=== PATIENT | male | born 1960 | race Caucasian/White ===

== ENCOUNTER 2017-02-17 21:26 | Emergency (ER) | payer OTHER ==
[2017-02-17 21:52] LABS: Hematocrit 46 % (42-52); Hemoglobin 15.6 g/dl (14.0-18.0); Mean Corpuscular HGB Conc 34 g/dl (31-36); Mean Corpuscular Hemoglobin 32 pg (27-31); Mean Corpuscular Volume 95 fL (80-94); Mean Platelet Volume 9 um3 (7.4-10.4); Red Blood Count 4.85 10^6/ul (4.0-5.4); Red Cell Distribution Width 13 % (10.5-15); White Blood Count 6.6 10^3/ul (3.5-10.8)
[2017-02-17 22:09] LABS: Albumin 4.3 g/dL (3.2-5.2); Calcium 9.4 mg/dL (8.6-10.3); EGFR African American 84.3 (>60); EGFR Non-African American 65.5 (>60); Globulin 2.6 g/dL (2-4); Magnesium 2.1 mg/dL (1.9-2.7); Total Bilirubin 0.4 mg/dL (0.2-1.0); Total Protein 6.9 g/dL (6.4-8.9)
--- NOTE | 2017-02-17 23:31 | ED ---
Mirian Andino Thomas, scribed for Bandar Velazquez MD on 02/17/17 at 2148 . Dizziness - HPI Summary HPI Summary: The pt is a 56 y/o M with a PMHx of Bigeminy presenting to the ED c/o an episode of tachycardia and dizziness that lasted 20 minutes. During the episode , he additionally c/o lightheadedness. His measured his pulse at 140-150, and this lasted about 20 minutes.The episode began suddenly when he was sitting in his chair. He denies recent excessive caffeine intake or exertion earlier today. He denies any other abnormal symptoms earlier today. When he was a passenger in the car to [facility] [place] ED, his tachycardia came down slowly. The pt states that 2 or 3 times a day he has "a flutter and then palpitations that are resolved in 2-3 seconds", but he presented to the ED because this episode lasted 20 minutes. 10 years ago, the pt was evaluated under a Holter monitor and a stress test and was diagnosed with Bigeminy. Since then, he has had no major issues similar to this episode. - History Of Current Complaint Chief Complaint: EDDizziness Stated Complaint: POSS TACHYCARDIA FOR 20 MINUTES Time Seen by Provider: 02/17/17 21:34 Hx Obtained From: Patient Onset/Duration: Resolved Character: Lightheaded, Dizzy Associated Signs And Symptoms: Positive: Palpitations - consistent with past episodes as Bigeminy, lasted 20 minutes (previous episodes only 2-3 seconds), Other: - POS: tachycarida (140-150), lightheadedness, dizziness - Allergies/Home Medications Allergies/Adverse Reactions: Allergies Allergy/AdvReac Type Severity Reaction Status Date / Time No Known Allergies Allergy Verified 02/17/17 21:29 PMH/Surg Hx/FS Hx/Imm Hx Previously Healthy: No Cardiovascular History: Reports: Other Cardiovascular Problems/Disorders - POS: Bigeminy Opthamlomology History: Denies: Hx Legally Blind Infectious Disease History: No Infectious Disease History: Denies: Traveled Outside the [place] in Last 30 Days - Family History Known Family History: Positive: Other - NEG: bleeding disorder, per EMR Negative: Diabetes - per EMR - Social History Lives: With Family - per EMR Alcohol Use: Occasionally - per EMR Hx Tobacco Use: No - per EMR Review of Systems Constitutional: Negative Negative: Fever Eyes: Negative ENT: Negative Positive: Other - POS: tachycardia (140-150) for 20 minutes, bigeminy episode ( 20 minutes) Respiratory: Negative Gastrointestinal: Negative Genitourinary: Negative Musculoskeletal: Negative Skin: Negative Neurological: Other - POS: lightheadedness, dizziness Psychological: Normal All Other Systems Reviewed And Are Negative: Yes Physical Exam Triage Information Reviewed: Yes Vital Signs On Initial Exam: Initial Vitals Temp Pulse Resp BP Pulse Ox 97 F 95 16 113/82 96 02/17/17 21:30 02/17/17 21:30 02/17/17 21:30 02/17/17 21:30 02/17/17 21:30 Vital Signs Reviewed: Yes Appearance: Positive: Well-Appearing, No Pain Distress Skin: Positive: Warm Head/Face: Positive: Normal Head/Face Inspection Eyes: Positive: JED ENT: Positive: Hearing grossly normal Neck: Positive: Supple Respiratory/Lung Sounds: Positive: Clear to Auscultation, Breath Sounds Present Cardiovascular: Positive: RRR Abdomen Description: Positive: Nontender, Soft Bowel Sounds: Positive: Present Musculoskeletal: Positive: Strength/ROM Intact Neurological: Positive: Alert, Oriented to Person Place, Time Psychiatric: Positive: Affect/Mood Appropriate Diagnostics - Vital Signs Vital Signs Temp Pulse Resp BP Pulse Ox 02/17/17 21:32 97.3 F 95 16 113/82 96 02/17/17 21:30 97 F 95 16 113/82 96 - Laboratory Lab Results: Lab Results 02/17/17 02/17/17 Range/Units 21:43 21:43 WBC 6.6 (3.5-10.8) 10^3/ul RBC 4.85 (4.0-5.4) 10^6/ul Hgb 15.6 (14.0-18.0) g/dl Hct 46 (42-52) % MCV 95 H (80-94) fL MCH 32 H (27-31) pg MCHC 34 (31-36) g/dl RDW 13 (10.5-15) % Plt Count 166 (150-450) 10^3/ul MPV 9 (7.4-10.4) um3 Neut % (Auto) 43.1 (38-83) % Lymph % (Auto) 45.0 (25-47) % [place] % (Auto) 7.0 (1-9) % Eos % (Auto) 3.9 (0-6) % Baso % (Auto) 1.0 (0-2) % Absolute Neuts (auto) 2.9 (1.5-7.7) 10^3/ul Absolute Lymphs (auto) 3.0 (1.0-4.8) 10^3/ul Absolute Monos (auto) 0.5 (0-0.8) 10^3/ul Absolute Eos (auto) 0.3 (0-0.6) 10^3/ul Absolute Basos (auto) 0.1 (0-0.2) 10^3/ul Absolute Nucleated RBC 0.01 10^3/ul Nucleated RBC % 0.1 Sodium 137 (133-145) mmol/L Potassium 4.0 (3.5-5.0) mmol/L Chloride 105 (101-111) mmol/L Carbon Dioxide 26 (22-32) mmol/L Anion Gap 6 (2-11) mmol/L BUN 23 (6-24) mg/dL Creatinine 1.15 (0.67-1.17) mg/dL Est GFR ( Amer) 84.3 (>60) Est GFR (Non-Af Amer) 65.5 (>60) BUN/Creatinine Ratio 20.0 (8-20) Glucose 101 H (70-100) mg/dL Calcium 9.4 (8.6-10.3) mg/dL Magnesium 2.1 (1.9-2.7) mg/dL Total Bilirubin 0.40 (0.2-1.0) mg/dL AST 17 (13-39) U/L ALT 15 (7-52) U/L Alkaline Phosphatase 49 (34-104) U/L Troponin I 0.00 (<0.04) ng/mL Total Protein 6.9 (6.4-8.9) g/dL Albumin 4.3 (3.2-5.2) g/dL Globulin 2.6 (2-4) g/dL Albumin/Globulin Ratio 1.7 (1-3) Result Diagrams: 02/17/17 21:43 02/17/17 21:43 Lab Statement: Any lab studies that have been ordered have been reviewed, and results considered in the medical decision making process. - EKG 21:44 Cardiac Rate: NL - 95 BPM EKG Interpretation: Sinus rhythm. Normal. Re-Evaluation - Re-Evaluation First Eval Re-Evaluation Time: 23:33 Change: Improved - Feeling better no ectopy noted, will d/c f/u cardiology Dizzy Course/Dx - Diagnoses Provider Diagnoses: Palpitations Discharge - Discharge Plan Condition: Stable Disposition: HOME Patient Education Materials: Palpitations (ED) Referrals: Randall Jackson MD [Primary Care Provider] - Additional Instructions: Follow up with your taxation agent. The documentation as recorded by the Mirian gatica Thomas accurately reflects the service I personally performed and the decisions made by , Bandar Velazquez MD.
[2017-02-17 23:51] VITALS: BP 102/65
== END 2017-02-17 23:50 | disposition home or self-care (01) ==
LOC: ED 21:26
DX: R00.2 Palpitations (principal); R42 Dizziness and giddiness
CPT/HCPCS: 36415; 80053; 83735; 84484; 85025; 93005; 99283

== ENCOUNTER 2019-05-08 22:27 | Emergency (ER) | payer OTHER ==
[2019-05-08] MEDS ORDERED: Lidocaine 1% MPF ** 5 ML VIAL ONE (23:00)
--- NOTE | 2019-05-08 23:21 | ED ---
Laceration/Wound HPI - HPI Summary HPI Summary: 58 year old male presents with left index finger laceration today. He states he cut his finger on a from cutting. He denies any foreign body. No numbness or tingling. Has full range of motion. Is not actively bleeding. Has a medical conditions. Unsure when last tetanus was. - History of Current Complaint Stated Complaint: LT POINTER FINGER LAC PER PT Time Seen by Provider: 05/08/19 22:39 Pain Intensity: 6 - Allergy/Home Medications Allergies/Adverse Reactions: Allergies Allergy/AdvReac Type Severity Reaction Status Date / Time No Known Allergies Allergy Verified 05/08/19 22:32 PMH/Surg Hx/FS Hx/Imm Hx Endocrine/Hematology History: Denies: Hx Diabetes Cardiovascular History: Reports: Other Cardiovascular Problems/Disorders - POS: Bigeminy Denies: Hx Hypertension, Hx Pacemaker/ICD History: Denies: Hx Renal Disease Sensory History: Denies: Hx Legally Blind, Hx Hearing Aid Opthamlomology History: Denies: Hx Legally Blind Psychiatric History: Denies: Hx Panic Disorder - Surgical History Surgery Procedure, Year, and Place: VASECTOMY - Immunization History Date of Tetanus Vaccine: needs Tdap Immunizations Up to Date: Yes Infectious Disease History: No Infectious Disease History: Denies: Traveled Outside the [place] in Last 30 Days - Family History Known Family History: Positive: Other - NEG: bleeding disorder, per EMR Negative: Diabetes - per EMR - Social History Alcohol Use: Occasionally Substance Use Type: Reports: None Hx Tobacco Use: No - per EMR Smoking Status (MU): Never Smoked Tobacco Review of Systems Negative: Fever Negative: Chest Pain Negative: Shortness Of Breath Positive: Other - left index finger laceration All Other Systems Reviewed And Are Negative: Yes Physical Exam Triage Information Reviewed: Yes Vital Signs On Initial Exam: Initial Vitals Temp Pulse Resp BP Pulse Ox 98.3 F 76 16 131/90 99 05/08/19 22:29 05/08/19 22:29 05/08/19 22:29 05/08/19 22:29 05/08/19 22:29 Vital Signs Reviewed: Yes Appearance: Positive: Well-Appearing Skin: Positive: Warm, Dry, Other - 1 1/2cm laceration of DIP of left index finger Head/Face: Positive: Normal Head/Face Inspection Eyes: Positive: Normal, Conjunctiva Clear ENT: Positive: Pharynx normal Respiratory/Lung Sounds: Positive: Clear to Auscultation, Breath Sounds Present Cardiovascular: Positive: Normal, RRR Musculoskeletal: Positive: Strength/ROM Intact - left index finger, Other - capillary refill<2 secs Neurological: Positive: Normal Psychiatric: Positive: Normal Procedures - Laceration/Wound Repair 1 Location: Other - left index finger Description: Irregular Length, Depth and Shape: 1 1/2cm by 1/2cm Irrigated w/ Saline (ccs): 500 Suture Type: Prolene Number of Sutures: 3 Diagnostics - Vital Signs Vital Signs Temp Pulse Resp BP Pulse Ox 05/08/19 22:29 98.3 F 76 16 131/90 99 - Laboratory Lab Statement: Any lab studies that have been ordered have been reviewed, and results considered in the medical decision making process. Laceration Repair Course/Dx - Course Course Of Treatment: 58 year old male presents with left index finger laceration today. He states he cut his finger on a from cutting. He denies any foreign body. No numbness or tingling. Has full range of motion. Is not actively bleeding. Has a medical conditions. Unsure when last tetanus was. On exam has one and a half centimeter by half centimeter laceration of left index finger. Cleaned area and place 3 sutures. Told to area clean and dry. Patient understands and agrees plan. - Differential Dx Differental Diagnoses: Abrasion, Avulsion, Laceration - Clinical Impression Provider Diagnoses: Laceration of left index finger Discharge ED - Sign-Out/Discharge Documenting (check all that apply): Patient Departure Patient Received Moderate/Deep Sedation with Procedure: No - Discharge Plan Condition: Good Disposition: HOME Patient Education Materials: Care For Your Stitches (ED) Referrals: Randall Jackson MD [Primary Care Provider] - Additional Instructions: Take Tylenol or ibuprofen for pain every 6 hours as needed Keep area clean and dry for 24 hours Return to ED or primary in 8-10 days to have sutures removed Return to ED if develop signs of infection such as fever, spreading redness, or pus. - Billing Disposition and Condition Condition: GOOD Disposition: Home
[2019-05-08] MEDS ORDERED: Tetan/Diph/Pertus SYR(Tdap)* 0.5 ML SYR(BOOSTRIX) use SYR contains LATEX IM ONE (23:38)
[2019-05-08 23:54] VITALS: BP 124/83
== END 2019-05-08 23:53 | disposition home or self-care (01) ==
LOC: ED 22:27
DX: S61.211A Laceration without foreign body of left index finger without damage to nail, initial encounter (principal); Z23 Encounter for immunization; W45.8XXA Other foreign body or object entering through skin, initial encounter; Y92.9 Unspecified place or not applicable; Z98.52 Vasectomy status
CPT/HCPCS: 12001; 90471; 90715; 99282